=== PATIENT | female | born 1965 | race Two or more races ===

== ENCOUNTER 2023-03-01 12:02 | Emergency (ER) | payer OTHER ==
[~2023-03-01] VITALS: Ht 157.5 cm; Wt 72.6 kg
[~2023-03-01 12:02] MED LIST: DIOVAN HCT 160-1 TAB; VASOTEC10 MG
[2023-03-01] MEDS ORDERED: ZESTRIL20 MG PO (12:30)
== END 2023-03-01 17:57 | disposition home or self-care (01) ==
LOC: ER 12:02
DX: J10.1 Influenza due to other identified influenza virus with other respiratory manifestations (principal); I10 Essential (primary) hypertension; Z20.822 Contact with and (suspected) exposure to COVID-19

== ENCOUNTER 2023-09-01 13:32 | Outpatient (CLI) | payer OTHER ==
[~2023-09-01 13:32] MED LIST changes: +ZESTRIL20 MG PO
== END 2023-09-01 13:37 | disposition home or self-care (01) ==
LOC: MAMO-SONO 13:32
PROVIDERS: ATTEND Internal Medicine
DX: I10 Essential (primary) hypertension (principal); Z01.810 Encounter for preprocedural cardiovascular examination; E11.51 Type 2 diabetes mellitus with diabetic peripheral angiopathy without gangrene; E55.9 Vitamin D deficiency, unspecified; Z12.11 Encounter for screening for malignant neoplasm of colon; Z11.3 Encounter for screening for infections with a predominantly sexual mode of transmission

== ENCOUNTER 2023-12-23 08:54 | Outpatient (CLI) | payer OTHER ==
[~2023-12-23 08:54] MED LIST changes: +DICLOFENAC POTA50 MG PO; +MONTELUKAST SODI4 M1; +NORFLEX100MG PO
== END 2023-12-23 08:59 | disposition home or self-care (01) ==
LOC: RAD 08:54
PROVIDERS: ATTEND Physical Medicine & Rehabilitation
DX: M54.2 Cervicalgia (principal); M54.6 Pain in thoracic spine; M54.50 Low back pain, unspecified

== ENCOUNTER 2024-01-05 06:15 | Outpatient (CLI) | payer OTHER ==
[2024-01-05 07:17] LABS: URINE APPEARANCE Clear; URINE BILIRRUBIN Negative (NEGATIVE); URINE BLOOD Negative; URINE COLOR Yellow; URINE GLUCOSE Negative (NEGATIVE); URINE KETONE Negative (NEGATIVE); URINE LEUKOCYTE Moderate; URINE NITRATE Negative; URINE PROTEIN Negative (NEGATIVE); URINE UROBILINOGEN 0.2 E.U./dl
[2024-01-05 07:21] LABS: URINE BACTERIA 1475.3 uL (0.0-1933); URINE EPITHELIAL CELLS 25.2 uL (0.0-38.8); URINE RBC 7.7 uL (0.0-20.8); URINE WBC 54.2 uL (0.0-23.2)
[2024-01-05 07:29] LABS: URINE CAST 0.15 uL (0.0-1.40)
[2024-01-05 07:29] LABS: HEMATOCRIT 37.8 % (36.0-45.00); HEMOGLOBIN 12.6 g/dL (12.0-15.00); MEAN CELL VOLUME 87.4 fL (80.00-100.00); MEAN CORPUSCULAR HEMOGLOBIN 29.2 pg (27.00-32.0); MEAN CORPUSCULAR HGB CONC 33.4 g/dl (32.0-36.0); PLATELET COUNT 241 K/uL (150-450); RED BLOOD COUNT 4.32 M/uL (4.00-6.00); RED CELL DISTRIBUTION WIDTH 13.7 % (11.5-14.5)
[2024-01-05 08:01] LABS: ALBUMIN 3.7 gm/dL (3.4-5.0); BILIRUBIN TOTAL 0.24 mg/dL (0.3-1.2); CALCIUM 9.2 mg/dL (8.5-10.1); CREATININE SERUM 0.64 mg/dL (0.55-1.02); GFR 95.99; GLOBULINA 3.6 G/DL (2.4-3.5); POTASSIUM 4.67 mEq/L (3.5-5.1); TOTAL PROTEIN 7.3 gm/dL (6.4-8.2)
== END 2024-01-05 06:16 | disposition home or self-care (01) ==
LOC: LAB 06:15
PROVIDERS: ATTEND Internal Medicine
DX: E55.9 Vitamin D deficiency, unspecified (principal); Z12.11 Encounter for screening for malignant neoplasm of colon; Z11.3 Encounter for screening for infections with a predominantly sexual mode of transmission; I10 Essential (primary) hypertension

== ENCOUNTER 2024-04-09 06:34 | Outpatient (CLI) | payer OTHER ==
[2024-04-09 07:31] LABS: HEMATOCRIT 36.5 % (36.0-45.00); HEMOGLOBIN 12.5 g/dL (12.0-15.00); MEAN CELL VOLUME 85.6 fL (80.00-100.00); MEAN CORPUSCULAR HEMOGLOBIN 29.3 pg (27.00-32.0); MEAN CORPUSCULAR HGB CONC 34.2 g/dl (32.0-36.0); PLATELET COUNT 235 K/uL (150-450); RED BLOOD COUNT 4.27 M/uL (4.00-6.00); RED CELL DISTRIBUTION WIDTH 13.6 % (11.5-14.5)
[2024-04-09 07:32] LABS: URINE APPEARANCE Clear; URINE BILIRRUBIN Negative (NEGATIVE); URINE BLOOD Negative; URINE COLOR Yellow; URINE GLUCOSE Negative (NEGATIVE); URINE KETONE Negative (NEGATIVE); URINE LEUKOCYTE Large; URINE NITRATE Negative; URINE PROTEIN Negative (NEGATIVE); URINE UROBILINOGEN 0.2 E.U./dl
[2024-04-09 07:43] LABS: URINE BACTERIA 70.5 uL (0.0-1933); URINE EPITHELIAL CELLS 20.2 uL (0.0-38.8); URINE RBC 10.8 uL (0.0-20.8); URINE WBC 213.6 uL (0.0-23.2)
[2024-04-09 07:44] LABS: URINE CAST 0.45 uL (0.0-1.40)
[2024-04-09 08:23] LABS: ALBUMIN 3.7 gm/dL (3.4-5.0); BILIRUBIN TOTAL 0.32 mg/dL (0.3-1.2); CALCIUM 9.1 mg/dL (8.5-10.1); CREATININE SERUM 0.66 mg/dL (0.55-1.02); GFR 92.64; GLOBULINA 3.4 G/DL (2.4-3.5); POTASSIUM 4.51 mEq/L (3.5-5.1); T4 TOTAL 9.55 UG/DL (4.8-13.9); TOTAL PROTEIN 7.1 gm/dL (6.4-8.2); TSH 2.24 uIU/mL (0.358-3.74)
== END 2024-04-09 06:38 | disposition home or self-care (01) ==
LOC: LAB 06:34
PROVIDERS: ATTEND Internal Medicine
DX: E55.9 Vitamin D deficiency, unspecified (principal); J32.9 Chronic sinusitis, unspecified; I10 Essential (primary) hypertension; Z12.11 Encounter for screening for malignant neoplasm of colon; Z11.3 Encounter for screening for infections with a predominantly sexual mode of transmission

== ENCOUNTER 2024-07-16 06:07 | Outpatient (CLI) | payer OTHER ==
[2024-07-16 07:32] LABS: HEMOGLOBIN 12.8 g/dL (12.0-15.00); MEAN CELL VOLUME 85.9 fL (80.00-100.00); MEAN CORPUSCULAR HEMOGLOBIN 29.6 pg (27.00-32.0); MEAN CORPUSCULAR HGB CONC 34.4 g/dl (32.0-36.0); PLATELET COUNT 241 K/uL (150-450); RED BLOOD COUNT 4.31 M/uL (4.00-6.00); RED CELL DISTRIBUTION WIDTH 13.6 % (11.5-14.5)
[2024-07-16 07:57] LABS: CALCIUM 9.1 mg/dL (8.5-10.1); CHOL HDL RATIO 3.8 (0-5.0); CREATININE SERUM 0.66 mg/dL (0.55-1.02); GFR 92.31; POTASSIUM 4.62 mEq/L (3.5-5.1)
[2024-07-16 13:08] LABS: ob NEGATIVE (NEGATIVE)
== END 2024-07-16 06:12 | disposition home or self-care (01) ==
LOC: LAB 06:07
PROVIDERS: ATTEND Internal Medicine
DX: I10 Essential (primary) hypertension (principal); E55.9 Vitamin D deficiency, unspecified; J32.9 Chronic sinusitis, unspecified; Z12.11 Encounter for screening for malignant neoplasm of colon; Z11.3 Encounter for screening for infections with a predominantly sexual mode of transmission

== ENCOUNTER → 2024-10-23 06:25 | Outpatient (CLI) | payer OTHER ==
[2024-10-23 07:16] LABS: BASO % 0.8 % (0.1-1.2); EOS # 0.17 (0.04-0.54); EOS % 2.7 % (0.7-7.0); HEMATOCRIT 36.8 % (34.1-44.9); HEMOGLOBIN 12.1 g/dL (11.2-15.7); LYMPH # 2.65 (1.18-3.74); LYMPH % 42.1 % (19.3-53.1); MEAN CORPUSCULAR HEMOGLOBIN 28.5 pg (25.6-32.2); MONO # 0.52 (0.24-0.82); MONO % 8.3 % (4.7-12.5); NEUT % 45.9 % (34.0-71.1); PLATELET COUNT 247 K/uL (163-369); RED BLOOD COUNT 4.25 M/uL (3.93-5.22); RED CELL DISTRIBUTION WIDTH 13.4 % (11.6-14.4)
[2024-10-23 07:29] LABS: PH,URINE 5.5 (5.0-8.0); URINE APPEARANCE Clear; URINE BILIRRUBIN Negative (NEGATIVE); URINE BLOOD Negative; URINE COLOR Yellow; URINE GLUCOSE Negative (NEGATIVE); URINE KETONE Negative (NEGATIVE); URINE LEUKOCYTE Moderate; URINE NITRATE Negative; URINE PROTEIN Negative (NEGATIVE); URINE UROBILINOGEN 0.2 E.U./dl
[2024-10-23 07:34] LABS: URINE BACTERIA 1348.7 uL (0.0-1933); URINE EPITHELIAL CELLS 37.5 uL (0.0-38.8); URINE RBC 10.4 uL (0.0-20.8); URINE WBC 122.4 uL (0.0-23.2)
[2024-10-23 08:03] LABS: ALBUMIN 3.7 gm/dL (3.4-5.0); BILIRUBIN TOTAL 0.29 mg/dL (0.3-1.2); CHOL HDL RATIO 4.1 (0-5.0); CREATININE SERUM 0.57 mg/dL (0.55-1.02); GFR 109.32; GLOBULINA 3.7 G/DL (2.4-3.5); POTASSIUM 4.68 mEq/L (3.5-5.1); TOTAL PROTEIN 7.4 gm/dL (6.4-8.2)
[2024-10-23 08:07] LABS: URINE CAST 0.14 uL (0.0-1.40)
== END | disposition home or self-care (01) ==
LOC: LAB 06:25
PROVIDERS: ATTEND Internal Medicine
DX: I10 Essential (primary) hypertension (principal); E55.9 Vitamin D deficiency, unspecified; J32.9 Chronic sinusitis, unspecified; H60.533 Acute contact otitis externa, bilateral; Z12.11 Encounter for screening for malignant neoplasm of colon; Z11.3 Encounter for screening for infections with a predominantly sexual mode of transmission

== ENCOUNTER → 2025-01-15 06:10 | Outpatient (CLI) | payer OTHER ==
[2025-01-15 07:06] LABS: BASO % 0.5 % (0.1-1.2); EOS # 0.18 (0.04-0.54); EOS % 2.5 % (0.7-7.0); LYMPH # 3.30 (1.18-3.74); LYMPH % 45.0 % (19.3-53.1); MEAN PLATELET VOLUME 10.70 fl (9.4-12.4); MONO # 0.67 (0.24-0.82); MONO % 9.1 % (4.7-12.5); NEUT # 3.12 (1.56-6.13); NEUT % 42.5 % (34.0-71.1); RED CELL DISTRIBUTION WIDTH 13.5 % (11.6-14.4)
[2025-01-15 07:15] LABS: URINE APPEARANCE Clear; URINE BILIRRUBIN Negative (NEGATIVE); URINE BLOOD Negative; URINE COLOR Yellow; URINE GLUCOSE Negative (NEGATIVE); URINE KETONE Trace (NEGATIVE); URINE LEUKOCYTE Large; URINE NITRATE Negative; URINE PROTEIN Negative (NEGATIVE); URINE UROBILINOGEN 0.2 E.U./dl
[2025-01-15 07:17] LABS: URINE BACTERIA 620.3 uL (0.0-1933); URINE EPITHELIAL CELLS 56.2 uL (0.0-38.8); URINE RBC 12.9 uL (0.0-20.8); URINE WBC 292.1 uL (0.0-23.2)
[2025-01-15 07:49] LABS: TYPE CELLS SQUAMOUS; URINE CAST 0.29 uL (0.0-1.40)
[2025-01-15 08:40] LABS: BUN CREA RATIO 20.0 (7.0-25.0); CHOL HDL RATIO 4.0 (0-5.0); CREATININE SERUM 0.64 mg/dL (0.55-1.02); GFR 95.64; GLUCOSE FASTING 102.0 mg/dL (65-100); HDL 49.0 mg/dl (40-60); LDL 121.0 mg/dl (0-130); OSMOLALITY SERUM 283.0 MOSM/KG (275-295); VLDL 26.0 (0-39)
[2025-01-15 08:41] LABS: ALT/SGPT 36.0 U/L (12-78); AST/SGOT 26.0 U/L (15-37); BILIRUBIN TOTAL 0.27 mg/dL (0.3-1.2); GLOBULINA 3.8 G/DL (2.4-3.5)
== END | disposition home or self-care (01) ==
LOC: LAB 06:10
PROVIDERS: ATTEND Internal Medicine
DX: I10 Essential (primary) hypertension (principal); E55.9 Vitamin D deficiency, unspecified; J32.9 Chronic sinusitis, unspecified; H60.533 Acute contact otitis externa, bilateral; Z12.11 Encounter for screening for malignant neoplasm of colon; Z11.3 Encounter for screening for infections with a predominantly sexual mode of transmission

== ENCOUNTER 2025-01-16 10:28 | Outpatient (CLI) | payer OTHER ==
[2025-01-16 11:46] LABS: ob NEGATIVE (NEGATIVE)
== END 2025-01-16 10:32 | disposition home or self-care (01) ==
LOC: LAB 10:28
PROVIDERS: ATTEND Internal Medicine
DX: I10 Essential (primary) hypertension (principal); E55.9 Vitamin D deficiency, unspecified; J32.9 Chronic sinusitis, unspecified; H60.533 Acute contact otitis externa, bilateral; Z12.11 Encounter for screening for malignant neoplasm of colon; Z11.3 Encounter for screening for infections with a predominantly sexual mode of transmission

== ENCOUNTER 2025-02-24 07:10 | Emergency (ER) | payer OTHER ==
[~2025-02-24] VITALS: Ht 154.9 cm; Wt 72.6 kg
[2025-02-24] MEDS ORDERED: GUAIFEN/DEXTROMETHORPHAN/PE 10 ML BLIST.PACK PO ONE ×2 (08:00→08:19)
[2025-02-24] MEDS ORDERED: ACETAMINOPHEN 500 MG GEL..CAP PO ONE ×2 (08:00→08:19)
[2025-02-24 09:10] LABS: BASO % 0.7 % (0.1-1.2); EOS # 0.28 (0.04-0.54); EOS % 4.0 % (0.7-7.0); LYMPH # 2.01 (1.18-3.74); LYMPH % 28.6 % (19.3-53.1); MEAN PLATELET VOLUME 10.40 fl (9.4-12.4); MONO # 0.78 (0.24-0.82); MONO % 11.1 % (4.7-12.5); NEUT # 3.89 (1.56-6.13); NEUT % 55.3 % (34.0-71.1); RED CELL DISTRIBUTION WIDTH 13.8 % (11.6-14.4)
[2025-02-24 10:11] LABS: COVID-19 AG NEGATIVE (NEGATIVE)
[2025-02-24] MEDS ORDERED: PEPCID AC20 MG PO (11:28)
[2025-02-24] MEDS ORDERED: TUSNEL LIQUID178 ML PO (11:28)
[2025-02-24] MEDS ORDERED: ZITHROMAX500 MG PO (11:28)
== END 2025-02-24 12:14 | disposition home or self-care (01) ==
LOC: ER 07:10
PROVIDERS: General Practice
DX: B34.9 Viral infection, unspecified (principal); I10 Essential (primary) hypertension; Z20.822 Contact with and (suspected) exposure to COVID-19

== ENCOUNTER 2025-03-31 15:39 | Emergency (ER) | payer OTHER ==
[~2025-03-31] VITALS: Ht 154.9 cm; Wt 72.6 kg
[~2025-03-31 15:39] MED LIST changes: +PEPCID AC20 MG PO; +TUSNEL LIQUID178 ML PO; +ZITHROMAX500 MG PO
[2025-03-31] MEDS ORDERED: ORPHENADRINE CITRATE 100 MG TABLET PO ONE (17:15)
[2025-03-31] MEDS ORDERED: KETOROLAC TROMETHAMINE 60 MG VIAL IM ONE ×2 (17:15→17:33)
[2025-03-31] MEDS ORDERED: DEXAMETHASONE SODIUM PHOSPHATE 4 MG/ML VIAL IV ONE (17:15)
[2025-03-31] MEDS ORDERED: CYCLOBENZAPRIN7.5 MG PO (17:21)
[2025-03-31] MEDS ORDERED: EC-NAPROSYN500 MG PO (17:21)
[2025-03-31] MEDS ORDERED: DEXAMETHASONE SODIUM PHOSPHATE 4 MG/ML VIAL ONE (17:33)
== END 2025-03-31 21:13 | disposition home or self-care (01) ==
LOC: ER 15:40
DX: M54.2 Cervicalgia (principal); M54.50 Low back pain, unspecified; I10 Essential (primary) hypertension

== ENCOUNTER 2025-04-11 09:57 | Outpatient (CLI) | payer OTHER ==
[~2025-04-11 09:57] MED LIST changes: +CYCLOBENZAPRIN7.5 MG PO; +EC-NAPROSYN500 MG PO
== END 2025-04-11 10:05 | disposition home or self-care (01) ==
LOC: MAMO-SONO 09:57
PROVIDERS: ATTEND Internal Medicine
DX: E55.9 Vitamin D deficiency, unspecified (principal); N39.0 Urinary tract infection, site not specified; I10 Essential (primary) hypertension; Z12.31 Encounter for screening mammogram for malignant neoplasm of breast

== ENCOUNTER → 2025-04-29 06:32 | Outpatient (CLI) | payer OTHER ==
[2025-04-29 07:49] LABS: BASO % 0.9 % (0.1-1.2); EOS # 0.17 (0.04-0.54); EOS % 2.5 % (0.7-7.0); LYMPH # 2.70 (1.18-3.74); LYMPH % 39.5 % (19.3-53.1); MEAN PLATELET VOLUME 10.40 fl (9.4-12.4); MONO # 0.51 (0.24-0.82); MONO % 7.5 % (4.7-12.5); NEUT # 3.38 (1.56-6.13); NEUT % 49.3 % (34.0-71.1); RED CELL DISTRIBUTION WIDTH 14.3 % (11.6-14.4)
[2025-04-29 07:52] LABS: URINE APPEARANCE Clear; URINE BILIRRUBIN Negative (NEGATIVE); URINE BLOOD Negative; URINE COLOR Yellow; URINE GLUCOSE Negative (NEGATIVE); URINE KETONE Negative (NEGATIVE); URINE LEUKOCYTE Small; URINE NITRATE Negative; URINE PROTEIN Negative (NEGATIVE); URINE UROBILINOGEN 0.2 E.U./dl
[2025-04-29 07:53] LABS: URINE BACTERIA 261.5 uL (0.0-1933); URINE EPITHELIAL CELLS 40.9 uL (0.0-38.8); URINE RBC 15.9 uL (0.0-20.8); URINE WBC 54.4 uL (0.0-23.2)
[2025-04-29 07:55] LABS: URINE CAST 0.14 uL (0.0-1.40)
[2025-04-29 08:26] LABS: ALT/SGPT 36.0 U/L (12-78); AST/SGOT 21.0 U/L (15-37); BILIRUBIN TOTAL 0.28 mg/dL (0.3-1.2); BUN CREA RATIO 28.0 (7.0-25.0); CREATININE SERUM 0.67 mg/dL (0.55-1.02); GFR 90.4; GLOBULINA 3.5 G/DL (2.4-3.5); GLUCOSE FASTING 120.0 mg/dL (65-100); OSMOLALITY SERUM 287.0 MOSM/KG (275-295)
== END | disposition home or self-care (01) ==
LOC: LAB 06:32
PROVIDERS: ATTEND Internal Medicine
DX: I10 Essential (primary) hypertension (principal); E55.9 Vitamin D deficiency, unspecified; N39.0 Urinary tract infection, site not specified; Z12.31 Encounter for screening mammogram for malignant neoplasm of breast